=== PATIENT | female | born 1940 | race Caucasian/White ===

== ENCOUNTER 2020-12-09 11:25 | Outpatient (CLI) | payer MEDICARE, BC | END 2020-12-09 11:26 | disposition home or self-care (01) | LOC: BURRAD 11:25 | PROVIDERS: ATTEND Family Medicine | DX: M54.6 Pain in thoracic spine (principal); M47.814 Spondylosis without myelopathy or radiculopathy, thoracic region | CPT/HCPCS: 72070 ==

== ENCOUNTER 2022-03-26 01:37 | Emergency (ER) | payer MEDICARE, BC ==
[2022-03-26] MEDS ORDERED: Oseltamivir 75 MG CAP ONE (02:59)
[2022-03-26] MEDS ORDERED: Ibuprofen 200 MG TAB ONE (02:59)
== END 2022-03-26 03:20 | disposition home or self-care (01) ==
LOC: BURERS 01:37
DX: J10.1 Influenza due to other identified influenza virus with other respiratory manifestations (principal); Z20.822 Contact with and (suspected) exposure to COVID-19; E78.5 Hyperlipidemia, unspecified; I10 Essential (primary) hypertension; Z79.899 Other long term (current) drug therapy; Z79.82 Long term (current) use of aspirin
CPT/HCPCS: 71045; 87804 ×2; 99284; U0003; U0005; J7620